=== PATIENT | male | born 1955 | race Caucasian/White ===

== ENCOUNTER 2019-07-20 09:35 | Day surgery (SDC) | payer OTHER, MEDICARE ==
[~2019-07-20] VITALS: Ht 177.8 cm; Wt 100.0 kg
[~2019-07-20 09:35] MED LIST: ATOR20 PO; Aspir 8181 MG PO; CHLO25B PO; LOSA25 PO; METO25ER PO; VENL150ER PO
[2019-07-20] MEDS ORDERED: CENTRUM SILVER1 EAC2 PO (10:18)
--- NOTE | 2019-07-20 13:30 | NUR ---
PT TO RECOVERY POST PROCEDURE. PT IS AWAKE, ORIENTED AND COOPERATIVE. PT DENIES CHEST PAIN/PRESSURE POST PROCEDURE. MONITOR SB 50'S, B/P 119/81, AFEBRILE, SPO2 94% RA. R RADIAL SITE NO SWELLING/HEMATOMA, TR BAND IN PLACE.
--- NOTE | 2019-07-20 16:20 | NUR ---
PT AMB TO BATHROOM, GAIT STEADY, SITE UNCHANGED.
--- NOTE | 2019-07-20 17:35 | NUR ---
PT AMB IN RECOVERY ROOM WITHOUT ISSUES, SITE UNCHANGED. PT DRESSED SELF INDEPENDENTLY, SITE UNCHANGED. TR BAND REMVOED, CLOTH DOT AND WRIST IMMOBILIZER IN PLACE; IV REMOVED-CANNULA INTACT.
--- NOTE | 2019-07-20 17:42 | NUR ---
PT RECEIVED DISCHARGE INSTRUCTIONS, MED LIST AND "AFTER CARE" INSTRUCTIONS; VERBALIZED GOOD UNDERSTANDING. PT WAS TAKEN TO CAR VIA W/C. PT LIVES IN HIS CAR ALONE AND WOULD BE DRIVING POST PROCEDURE. THIS WAS DISCUSSED PRIOR TO THE PT HAVING THE PROCEDURE AND THE PT CHOSE TO HAVE ONLY LOCAL AT THE SITE AND NO SEDATION. DR LYON DISCUSSED ALL THIS PRIOR TO TAKING THE PT BACK FOR HIS ANGIOGRAM.
== END 2019-07-20 22:34 | disposition home or self-care (01) ==
LOC: MHTC 09:35
PROC: 4A023N7 Measurement of Cardiac Sampling and Pressure, Left Heart, Percutaneous Approach (ICD-10-PCS; principal; 2019-07-20)
PROC: B201YZZ Plain Radiography of Multiple Coronary Arteries using Other Contrast (ICD-10-PCS; principal; 2019-07-20)
DX: I25.10 Atherosclerotic heart disease of native coronary artery without angina pectoris (principal); I35.0 Nonrheumatic aortic (valve) stenosis; E78.00 Pure hypercholesterolemia, unspecified; I10 Essential (primary) hypertension; E66.9 Obesity, unspecified; E78.5 Hyperlipidemia, unspecified; Z79.899 Other long term (current) drug therapy; Z79.82 Long term (current) use of aspirin; Z87.891 Personal history of nicotine dependence; Z68.31 Body mass index [BMI] 31.0-31.9, adult
CPT/HCPCS: 76937; 85347; 93005; 93010; 93458; C1769; C1894; J1644; J7030; Q9967

== ENCOUNTER 2020-12-09 08:25 | Emergency (ER) | payer OTHER, MEDICARE ==
[~2020-12-09] VITALS: Ht 177.8 cm; Wt 104.3 kg
[~2020-12-09 08:25] MED LIST changes: +CENTRUM SILVER1 EAC2 PO
[2020-12-09] MEDS ORDERED: HYDCHL12.5 PO (08:35)
[2020-12-09 09:04] LABS: BASOPHILS ABSOLUTE AUTO 0.01 K/mm3 (0.00-0.23); BASOPHILS PERCENT AUTO 0 % (0-2); EOSINOPHILS PERCENT AUTO 3 % (0-6); Hematocrit 38.8 % (37.0-53.0); Hemoglobin 13.1 g/dL (13.5-17.5); IMMATURE GRAN ABSOLUTE AUTO 0.03 K/mm3 (0.00-0.10); IMMATURE GRAN PERCENT AUTO 0 % (0-1); LYMPHOCYTES ABSOLUTE AUTO 1.32 K/mm3 (0.84-5.20); LYMPHOCYTES PERCENT AUTO 13 % (21-46); MONOCYTES ABSOLUTE AUTO 1.18 K/mm3 (0.16-1.47); MONOCYTES PERCENT AUTO 12 % (4-13); Mean Corpuscular HGB 30.6 pg (26.0-34.0); Mean Corpuscular HGB Conc 33.8 g/dL (31.5-36.5); Mean Corpuscular Volume 91 fL (80-100); NEUTROPHILS ABSOLUTE AUTO 7.39 K/mm3 (1.96-9.15); NEUTROPHILS PERCENT AUTO 72 % (41-73); Platelet Count 172 K/mm3 (150-400); RDW Coefficient Variation 12.9 % (11.7-14.2); RDW Standard Deviation 42.6 fL (35.1-46.3); Red Blood Cell Count 4.28 M/mm3 (4.30-5.90); White Blood Cell Count 10.23 K/mm3 (4.00-11.30)
[2020-12-09 09:26] LABS: Alanine Aminotransfer (ALT/SGP 18 U/L (12-78); Albumin, Blood 3.1 g/dL (3.4-5.0); Albumin/Globulin Ratio 0.8 (0.8-1.8); Alk Phos 132 U/L (50-136); Anion Gap 6 mmol/L (6-16); Aspartate Aminotrans (AST/SGOT 18 U/L (12-37); Bilirubin, Total 0.6 mg/dL (0.1-1.0); Blood Urea Nitrogen 14 mg/dL (8-24); Bun/Creatinine Ratio 12.7 (12.0-20.0); CO2, Blood 24 mmol/L (21-32); Calcium, Blood 8.8 mg/dL (8.5-10.1); Chloride, Blood 109 mmol/L (98-108); Glomerular Filtration Rate >60 (60-); Glucose, Blood 97 mg/dL (70-99); Potassium, Blood 3.7 mmol/L (3.5-5.5); Sodium, Blood 139 mmol/L (136-145); Total Protein, Blood 7.1 g/dL (6.4-8.2)
[2020-12-09] MEDS ORDERED: LEVFLO500 PO (11:07)
[2020-12-09] MEDS ORDERED: DICY20 PO (11:07)
== END 2020-12-09 11:25 | disposition home or self-care (01) ==
LOC: ER 08:25
PROVIDERS: Physician Assistant
DX: K52.9 Noninfective gastroenteritis and colitis, unspecified (principal); Z79.82 Long term (current) use of aspirin; Z79.899 Other long term (current) drug therapy
CPT/HCPCS: 36415; 74176; 80053; 83690; 84484; 85025; 93005; 93010; 96374; 99284-25; J2405; J7030

== ENCOUNTER 2021-06-10 18:48 | Emergency (ER) | payer OTHER ==
[~2021-06-10] VITALS: Ht 177.8 cm; Wt 95.2 kg
[~2021-06-10 18:48] MED LIST changes: +DICY20 PO; +HYDCHL12.5 PO; +LEVFLO500 PO
[2021-06-10] MEDS ORDERED: CYCLOBENZAPRINE5 MG PO (20:24)
[2021-06-11] MEDS ORDERED: IBUP600 PO (05:00)
[2021-06-11] MEDS ORDERED: CYCL10 PO (05:00)
== END 2021-06-10 20:35 | disposition home or self-care (01) ==
LOC: ER 18:48
DX: S16.1XXA Strain of muscle, fascia and tendon at neck level, initial encounter (principal); I10 Essential (primary) hypertension; E78.00 Pure hypercholesterolemia, unspecified; Z87.891 Personal history of nicotine dependence; Z79.899 Other long term (current) drug therapy; V89.2XXA Person injured in unspecified motor-vehicle accident, traffic, initial encounter
CPT/HCPCS: 70450; 72125; 99284-25

== ENCOUNTER 2021-06-11 03:00 | Emergency (ER) | payer OTHER ==
[~2021-06-11] VITALS: Ht 177.8 cm; Wt 99.8 kg
[~2021-06-11 03:00] MED LIST changes: +CYCLOBENZAPRINE5 MG PO
[2021-06-11] MEDS ORDERED: CYCL10 PO (05:00)
[2021-06-11] MEDS ORDERED: IBUP600 PO (05:00)
== END 2021-06-11 05:39 | disposition home or self-care (01) ==
LOC: ER 03:00
DX: M79.10 Myalgia, unspecified site (principal); I10 Essential (primary) hypertension; E78.00 Pure hypercholesterolemia, unspecified; Z87.891 Personal history of nicotine dependence; Z79.899 Other long term (current) drug therapy
CPT/HCPCS: 96372; 99282; A9270; J1885

== ENCOUNTER → 2023-01-10 | Outpatient (CLI) | payer OTHER ==
[~2023-01-10] MED LIST changes: +CYCL10 PO; +IBUP600 PO
[2023-01-12 13:09] LABS: Adenovirus F 40/41 Not Detected (NOT DETECT); Astrovirus Not Detected (NOT DETECT); Campylobacter Sp Not Detected (NOT DETECT); Cryptosporidium Not Detected (NOT DETECT); Cyclospora Cayetanensis Not Detected (NOT DETECT); E. Coli O157 Not Detected (NOT DETECT); Entamoeba Histolytica Not Detected (NOT DETECT); Enteroaggregative E. coli-EAEC Not Detected (NOT DETECT); Enteropathogenic E. coli-EPEC Not Detected (NOT DETECT); Enterotoxigenic E. coli-ETEC Not Detected (NOT DETECT); Giardia Lamblia Not Detected (NOT DETECT); Norovirus GI/GII Not Detected (NOT DETECT); Plesiomonas Shigelloides Not Detected (NOT DETECT); Rotavirus A Not Detected (NOT DETECT); Salmonella Sp Not Detected (NOT DETECT); Sapovirus Not Detected (NOT DETECT); Shiga Toxin-prod E. coli-STEC Not Detected (NOT DETECT); Shigella/Enteroin E. coli-EIEC Not Detected (NOT DETECT); Vibrio Cholerae Not Detected (NOT DETECT); Vibrio Sp Not Detected (NOT DETECT); Yersinia Enterocolitica Not Detected (NOT DETECT)
== END | disposition home or self-care (01) ==
LOC: LAB SHORT 09:06
PROVIDERS: Physician Assistant Medical
DX: R19.7 Diarrhea, unspecified (principal)
CPT/HCPCS: 87507

== ENCOUNTER 2024-01-18 01:39 | Emergency (ER) | payer OTHER ==
[~2024-01-18] VITALS: Ht 175.3 cm; Wt 97.1 kg
[2024-01-18] MEDS ORDERED: Acetaminophen 500 MG Tab PO ONE (03:55)
[2024-01-18] MEDS ORDERED: AMLO5 PO (04:05)
[2024-01-18] MEDS ORDERED: FURO40 PO (04:05)
[2024-01-18] MEDS ORDERED: ESCI20 PO (04:05)
[2024-01-18 04:15] LABS: BASOPHILS ABSOLUTE AUTO 0.04 K/mm3 (0.00-0.23); BASOPHILS PERCENT AUTO 0 % (0-2); EOSINOPHILS ABSOLUTE AUTO 0.37 K/mm3 (0.00-0.68); EOSINOPHILS PERCENT AUTO 3 % (0-6); Hematocrit 36.4 % (37.0-53.0); Hemoglobin 12.5 g/dL (13.5-17.5); IMMATURE GRAN ABSOLUTE AUTO 0.04 K/mm3 (0.00-0.10); IMMATURE GRAN PERCENT AUTO 0 % (0-1); LYMPHOCYTES ABSOLUTE AUTO 0.71 K/mm3 (0.84-5.20); LYMPHOCYTES PERCENT AUTO 6 % (21-46); MONOCYTES ABSOLUTE AUTO 0.71 K/mm3 (0.16-1.47); MONOCYTES PERCENT AUTO 6 % (4-13); Mean Corpuscular HGB 29.4 pg (26.0-34.0); Mean Corpuscular HGB Conc 34.3 g/dL (31.5-36.5); Mean Corpuscular Volume 86 fL (80-100); NEUTROPHILS ABSOLUTE AUTO 9.91 K/mm3 (1.96-9.15); NEUTROPHILS PERCENT AUTO 84 % (41-73); RDW Coefficient Variation 13.2 % (11.7-14.2); RDW Standard Deviation 40.6 fL (35.1-46.3); Red Blood Cell Count 4.25 M/mm3 (4.30-5.90); White Blood Cell Count 11.78 K/mm3 (4.00-11.30)
[2024-01-18 04:16] LABS: Mean Platelet Volume 10.7 fL (9.1-12.4); Platelet Count 171 K/mm3 (150-400)
[2024-01-18 04:17] LABS: Influenza A, PCR NEGATIVE (NEGATIVE); Influenza B, PCR NEGATIVE (NEGATIVE); Resp Syncytial Virus, PCR NEGATIVE (NEGATIVE); SARS-Cov-2 (COVID-19) PCR, MMC NEGATIVE (NEGATIVE)
[2024-01-18 04:30] LABS: Alanine Aminotransfer (ALT/SGP 21 U/L (12-78); Albumin, Blood 3.8 g/dL (3.4-5.0); Albumin/Globulin Ratio 1.1 (0.8-1.8); Alk Phos 86 U/L (50-136); Anion Gap 11 mmol/L (3-11); Aspartate Aminotrans (AST/SGOT 19 U/L (12-37); Bilirubin, Total 0.6 mg/dL (0.1-1.0); Blood Urea Nitrogen 34 mg/dL (8-24); Bun/Creatinine Ratio 21.5 (12.0-20.0); CO2, Blood 23 mmol/L (21-32); Calcium, Blood 9.3 mg/dL (8.5-10.1); Chloride, Blood 108 mmol/L (98-108); Creatinine, Blood 1.58 mg/dL (0.60-1.20); Globulin, Blood 3.5 g/dL (2.2-4.0); Glomerular Filtration Rate 47 (60-); Glucose, Blood 107 mg/dL (70-99); Potassium, Blood 4.3 mmol/L (3.5-5.5); Sodium, Blood 138 mmol/L (136-145); Total Protein, Blood 7.3 g/dL (6.4-8.2)
[2024-01-18] MEDS ORDERED: Lactated Ringer's 1,000 ML IV ONE (04:50)
[2024-01-18 04:56] LABS: Source, Urine Clean Catch
[2024-01-18 04:59] LABS: Bilirubin, Urine Neg (Neg); Blood, Urine Neg (Neg); Glucose Qualitative, Urine Neg (Neg); Ketones, Urine Neg (Neg); Leukocyte Esterase, Urine Neg (Neg); Nitrite, Urine Neg (Neg); Protein, Urine Neg (Neg); Specific Gravity, Urine 1.005 (1.003-1.022); Urobilinogen, Urine NORM (Normal)
[2024-01-18 05:03] LABS: Appearance, Urine Clear (Clear); Color, Urine Yellow (P-Yellow)
[2024-01-18 05:07] LABS: Ethanol (Alcohol), Blood, Med <3 mg/dL
[2024-01-18 05:33] LABS: U Amphetamine Screen Not Detected; U Barbituate Screen Not Detected; U Benzodiazapine Screen Not Detected; U Buprenorphine Screen Not Detected; U Cannabinoids Screen Not Detected; U Cocaine Screen Not Detected; U Methadone Screen Not Detected; U Methamphetamine Screen Not Detected; U Opiates Screen Not Detected; U Oxycodone Screen Not Detected; U Phencyclidine Screen Not Detected
[2024-01-18] MEDS ORDERED: Cefdinir 300 MG Cap PO ONE (05:35)
[2024-01-18] MEDS ORDERED: CEFD300 PO (05:48)
[2024-01-18 06:00] VITALS: BP 107/65
[2024-01-22] MEDS ORDERED: LISI20 PO (16:08)
[2024-01-22] MEDS ORDERED: VITAMIN B12500 MCG PO (16:09)
[2024-01-22] MEDS ORDERED: Vitamin D1000 UNI1 PO (16:09)
[2024-01-22] MEDS ORDERED: NITR.4SL SL (16:52)
[2024-01-22] MEDS ORDERED: NITRO-DUR1 EAC1 TOP (16:53)
[2024-01-25] MEDS ORDERED: VISBIOME 112.51 EACH PO (18:06)
[2024-01-25] MEDS ORDERED: CEFTRIAXONE2 G1 IV (18:07)
== END 2024-01-18 06:15 | disposition home or self-care (01) ==
LOC: ER 01:39
PROVIDERS: Emergency Medicine
DX: R50.9 Fever, unspecified (principal); I10 Essential (primary) hypertension; Z79.82 Long term (current) use of aspirin; Z79.899 Other long term (current) drug therapy; Z95.1 Presence of aortocoronary bypass graft; Z87.891 Personal history of nicotine dependence; Z11.52 Encounter for screening for COVID-19
CPT/HCPCS: 0241U; 71046; 80053; 81003; 83605; 83735; 84145; 85025; 87040; 87184; 99283-25; A9270; J7120

== ENCOUNTER 2024-01-22 10:44 | Inpatient (IN) | payer OTHER ==
[~2024-01-22] VITALS: Ht 175.3 cm; Wt 98.7 kg
[~2024-01-22 10:44] MED LIST changes: +AMLO5 PO; +CEFD300 PO; +ESCI20 PO; +FURO40 PO
[2024-01-22 11:23] LABS: BASOPHILS ABSOLUTE AUTO 0.06 K/mm3 (0.00-0.23); BASOPHILS PERCENT AUTO 1 % (0-2); EOSINOPHILS ABSOLUTE AUTO 0.64 K/mm3 (0.00-0.68); EOSINOPHILS PERCENT AUTO 8 % (0-6); Hematocrit 33.8 % (37.0-53.0); Hemoglobin 11.3 g/dL (13.5-17.5); IMMATURE GRAN ABSOLUTE AUTO 0.04 K/mm3 (0.00-0.10); IMMATURE GRAN PERCENT AUTO 1 % (0-1); LYMPHOCYTES ABSOLUTE AUTO 1.59 K/mm3 (0.84-5.20); LYMPHOCYTES PERCENT AUTO 19 % (21-46); MONOCYTES ABSOLUTE AUTO 0.88 K/mm3 (0.16-1.47); MONOCYTES PERCENT AUTO 11 % (4-13); Mean Corpuscular HGB 29.2 pg (26.0-34.0); Mean Corpuscular HGB Conc 33.4 g/dL (31.5-36.5); Mean Corpuscular Volume 87 fL (80-100); Mean Platelet Volume 10.7 fL (9.1-12.4); NEUTROPHILS PERCENT AUTO 61 % (41-73); Platelet Count 180 K/mm3 (150-400); RDW Coefficient Variation 13.6 % (11.7-14.2); RDW Standard Deviation 43.5 fL (35.1-46.3); Red Blood Cell Count 3.87 M/mm3 (4.30-5.90); White Blood Cell Count 8.31 K/mm3 (4.00-11.30)
[2024-01-22] MEDS ORDERED: CefTRIAXone Sodium 1,000 MG in NS 100 ML IV ONE (11:40)
[2024-01-22 11:52] LABS: Albumin, Blood 3.3 g/dL (3.4-5.0); Albumin/Globulin Ratio 0.8 (0.8-1.8); Bilirubin, Total 0.5 mg/dL (0.1-1.0); Bun/Creatinine Ratio 14.7 (12.0-20.0); Calcium, Blood 8.8 mg/dL (8.5-10.1); Creatinine, Blood 1.36 mg/dL (0.60-1.20); Potassium, Blood 4.3 mmol/L (3.5-5.5); Total Protein, Blood 7.3 g/dL (6.4-8.2)
[2024-01-22] MEDS ORDERED: Polyethylene Glycol 3350 17 gm PO PRN (14:50)
[2024-01-22] MEDS ORDERED: Acetaminophen 500 MG Tab PO PRN (14:50)
[2024-01-22 16:04] VITALS: BP 135/73
[2024-01-22] MEDS ORDERED: LISI20 PO ×2 (16:08)
[2024-01-22] MEDS ORDERED: VITAMIN B12500 MCG PO ×2 (16:09)
[2024-01-22] MEDS ORDERED: Vitamin D1000 UNI1 PO ×2 (16:09)
[2024-01-22] MEDS ORDERED: NITR.4SL SL ×2 (16:52)
[2024-01-22] MEDS ORDERED: NITRO-DUR1 EAC1 TOP ×2 (16:53)
--- NOTE | 2024-01-22 17:48 | NUR ---
ADMISSION/RN NOTE MR LUCAS WAS ADMITTED TO MEDICAL UNIT FROM THE ER AT 1600HRS. HE HAS RLE CELULITIS, REDNESS AND SWELLING AROUND RIGHT ANKLE. HE DENIES ANY PAIN WHILE AT REST, SAID THAT HE FEELS PRESSURE WHEN HE AMBULATES ON IT. HE C/O CHRONIC NUMBNESS AND TINGLING TO BLE. MR LUCAS IS ORIENTATED, TALKATIVE. 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 HE IS WEARING 0.1MG/HR NITRO PATCH ON HIS LEFT CHEST. MED REC UPDATED AND DR OCASIO NOTIFIED. MR LUCAS IS CURRENTLY LIVING IN HIS VEHICLE AND HAS NO OTHER HOME. HE SAID THERE HAVE BEEN OCCASIONS OVER THE PAST YEAR THAT HE WAS CONCERNED THAT HE WOULDN'T HAVE ENOUGH FOOD, BUT THAT HE HAS ALWAYS MANAGED. HE HAS BEEN ABLE TO GET TO MEDICAL APPOINTMENTS, GET HIS MEDICATIONS AND GENERALLY APPEARS WELL KEMPT. ADVISED ON FALL PRECAUTIONS AND PREVENTION AND PT VERBALISED UNDERTANDING. RESTING IN BED, CALL LIGHT IN REACH, FEET ELEVATED.
[2024-01-22 19:21] VITALS: BP 104/62
[2024-01-22] MEDS ORDERED: Docusate Sodium/Senna 1 Tab PO SCH (21:00)
[2024-01-22] MEDS ORDERED: Lactobacil 2-S.Thermo-Bifido 1 1 Cap PO SCH (21:00)
[2024-01-22] MEDS ORDERED: Atorvastatin 40 MG Tab PO SCH (21:00)
[2024-01-23 03:01] VITALS: BP 104/76
--- NOTE | 2024-01-23 04:17 | NUR ---
OIL WELL LOGGER SUMMARY VSS. ALERT TO QUESTIONS ASKED. SOME APPARENT FORGETFULNESS. UP AD JESSE. TOLERATED MES WELL WITH WATER. RIGHT LOWER EXT REMAINS REDDENED AND SWOLLEN BUT ABLE TO WALK ON IT. NO C/O PAIN. HAS BEEN RESTING QUIETLY WITH FEW INTERRUPTIONS, ABLE TO REPOSITION SELF IN BED WITHOUT ASSIST. CALL LIGHT IN REACH, RAILS UP X 2 AND BED IN LOW POSITION FOR SAFETY. WILL CONTINUE TO MONITOR
[2024-01-23 05:18] LABS: Hemoglobin 10.8 g/dL (13.5-17.5); Mean Corpuscular HGB 28.9 pg (26.0-34.0); Mean Corpuscular HGB Conc 32.7 g/dL (31.5-36.5); Mean Corpuscular Volume 88 fL (80-100); Mean Platelet Volume 10.3 fL (9.1-12.4); Platelet Count 167 K/mm3 (150-400); RDW Coefficient Variation 13.5 % (11.7-14.2); RDW Standard Deviation 43.8 fL (35.1-46.3); Red Blood Cell Count 3.74 M/mm3 (4.30-5.90); White Blood Cell Count 6.94 K/mm3 (4.00-11.30)
[2024-01-23] MEDS ORDERED: Nitroglycerin Patch 0.1MG / HR TOP SCH (06:00)
[2024-01-23 06:25] LABS: Albumin, Blood 2.9 g/dL (3.4-5.0); Anion Gap 10 mmol/L (3-11); Blood Urea Nitrogen 22 mg/dL (8-24); Bun/Creatinine Ratio 17.3 (12.0-20.0); CO2, Blood 24 mmol/L (21-32); Calcium, Blood 8.7 mg/dL (8.5-10.1); Chloride, Blood 111 mmol/L (98-108); Creatinine, Blood 1.27 mg/dL (0.60-1.20); Glomerular Filtration Rate 61 (60-); Glucose, Blood 97 mg/dL (70-99); Magnesium, Blood 2.4 mg/dL (1.6-2.4); Phosphorus, Blood 3.6 mg/dL (2.5-4.9); Potassium, Blood 4.1 mmol/L (3.5-5.5); Sodium, Blood 141 mmol/L (136-145)
[2024-01-23 07:31] VITALS: BP 119/73
[2024-01-23] MEDS ORDERED: NS 250 ML IV PRN (07:35)
[2024-01-23] MEDS ORDERED: CeFAZolin Sodium 2,000 MG in NS 100 ML IV SCH (08:00)
[2024-01-23] MEDS ORDERED: Lisinopril 20 MG Tab PO SCH (09:00)
[2024-01-23] MEDS ORDERED: Citalopram Hydrobromide 20 MG Tab PO SCH (09:00)
[2024-01-23] MEDS ORDERED: AmLODIPine Besylate 5 MG Tab PO SCH (09:00)
[2024-01-23] MEDS ORDERED: Furosemide 40 MG Tab PO SCH (09:00)
[2024-01-23] MEDS ORDERED: Multivitamins 1 Tab PO SCH (09:00)
[2024-01-23] MEDS ORDERED: Cholecalciferol 1000 Unit Tablet (=25MCG) PO SCH (09:00)
[2024-01-23] MEDS ORDERED: Enoxaparin 40 MG/0.4 ML SYR SC SCH (09:00)
[2024-01-23] MEDS ORDERED: Aspirin 81 MG TabEC PO SCH (09:00)
[2024-01-23 14:53] VITALS: BP 123/68
--- NOTE | 2024-01-23 17:04 | NUR ---
SHIFT ASSESSMENT MR LUCAS HAS NO NOTABLE CHANGE TO RIGHT ANKLE REDNESS AND SWELLING TODAY. RIGHT ANKLE DISCOMFORT HELPED WITH TYLENOL. UP INDEPENDENTLY TO SHOWER/BATHROOM WITH STEADY GAIT. RECEIVING IV ABX SCHEDULED. GOOD APPETITE. BED LOW, CALL LIGHT IN REACH.
[2024-01-23 19:58] VITALS: BP 115/74
--- NOTE | 2024-01-24 03:52 | NUR ---
DRAFTER MECHANICAL SUMMARY VSS. UP AD JESSE, CONTINENT OF BOWEL AND BLADDER. RIGHT LOWER LEG/ANKLE/FOOT REMAINS REDDENED AND SWOLLEN. RECEIVING ANTIBIOTICS AND TYLENOL FOR PAIN - SEE MAR FOR DETAILS. ABLE TO REPOSITION SELF IN BED WITHOUT ASSIST. HAS BEEN RESTING QUIETLY WITH FEW INTERRUPTIONS. CALL LIGHT IN REACH, RAILS UP X 2 AND BED IN LOW POSITION FOR SAFETY. WILL CONTINUE TO MONITOR
[2024-01-24 04:32] VITALS: BP 128/77
[2024-01-24 07:21] VITALS: BP 119/72
[2024-01-24 14:43] VITALS: BP 111/73
--- NOTE | 2024-01-24 15:56 | NUR ---
SHIFT SUMMARY MR LUCAS IN OX4. AMBULATORY INDEPENDENTLY IN THE ROOM. REDNESS AND SWELLING TO RIGHT ANKLE LOOKS IMPROVED COMPARED TO YESTERDAY. ENCOURAGED TO KEEP RIGHT ANKLE ELEVATED. HE C/O SOME DISCOMFORT TO RIGHT AND LEFT LOWER BACK, LEFT KNEE AND RIGHT RY. HE USED ICE AND TYLENOL WITH LITTLE RELIEF. PAIN /, ON IV ABX. BED LOW. CALL LIGHT IN REACH.
[2024-01-24 19:43] VITALS: BP 95/64
[2024-01-24 19:44] VITALS: BP 109/72
--- NOTE | 2024-01-25 00:43 | NUR ---
PATIENT IS SLEEPING AT THIS TIME AND DOES NOT APPEAR TO BE IN ANY DISTRESS. CARE IS ONGOING.
[2024-01-25 02:37] VITALS: BP 114/68
--- NOTE | 2024-01-25 04:05 | NUR ---
PATIENT APPEARS TO BE SLEEPING AT THIS TIME. DOES NOT APPEAR TO BE IN ANY DISTRESS. BED IS IN THE LOWEST POSITION, AND CALL LIGHT IS WITHIN REACH.
--- NOTE | 2024-01-25 04:52 | NUR ---
SHIFT SUMMARY PATIENT IS ALERT AND ORIENTED X4. FULL CODE. PLEASANT AND COOPERATIVE WITH CARE. PATIENT IS INDEPENDENT IN THE ROOM. RLE REDNESS AND SWELLING APPEARS TO BE DECREASING. PATIENT REPORTS 2/10 DISCOMFORT TWICE DURING SHIFT. TYLENOL IS GIVEN BOTH TIMES. PATIENT REPORTS THAT THIS IS EFFECTIVE. PATIENT SLEEPS THROUGH MOST OF THE NIGHT WITH NO ISSUES. BED IS IN LOWEST POSITION AND CALL LIGHT IS WITHIN REACH. THIS RN WILL RELAY ALL INFORMATION TO ONCOMING AM NURSE. NO ACUTE CHANGES DURING THIS SHIFT.
[2024-01-25 06:14] LABS: Hemoglobin 12.4 g/dL (13.5-17.5); Mean Corpuscular HGB 29.1 pg (26.0-34.0); Mean Corpuscular HGB Conc 33.5 g/dL (31.5-36.5); Mean Corpuscular Volume 87 fL (80-100); Mean Platelet Volume 10.1 fL (9.1-12.4); Platelet Count 222 K/mm3 (150-400); RDW Coefficient Variation 13.3 % (11.7-14.2); RDW Standard Deviation 41.5 fL (35.1-46.3); Red Blood Cell Count 4.26 M/mm3 (4.30-5.90); White Blood Cell Count 7.95 K/mm3 (4.00-11.30)
[2024-01-25 06:31] LABS: Albumin, Blood 3.3 g/dL (3.4-5.0); Anion Gap 10 mmol/L (3-11); Blood Urea Nitrogen 22 mg/dL (8-24); Bun/Creatinine Ratio 16.4 (12.0-20.0); CO2, Blood 25 mmol/L (21-32); Chloride, Blood 109 mmol/L (98-108); Creatinine, Blood 1.34 mg/dL (0.60-1.20); Glomerular Filtration Rate 57 (60-); Glucose, Blood 96 mg/dL (70-99); Phosphorus, Blood 3.9 mg/dL (2.5-4.9); Potassium, Blood 4.1 mmol/L (3.5-5.5); Sodium, Blood 140 mmol/L (136-145)
[2024-01-25 07:53] VITALS: BP 116/85
[2024-01-25] MEDS ORDERED: CefTRIAXone Sodium 2,000 MG in NS 100 ML IV SCH (10:30)
[2024-01-25 16:20] VITALS: BP 110/84
[2024-01-25] MEDS ORDERED: VISBIOME 112.51 EACH PO ×2 (18:06)
[2024-01-25] MEDS ORDERED: CEFTRIAXONE2 G1 IV ×2 (18:07)
--- NOTE | 2024-01-25 18:11 | NUR ---
PT PLEASANT TODAY. VERY TALKATIVE. WAS TO DISCHARGE, BUT ATC NOT ABLE TO TAKE REPORT TO FIT HIM IN. EXPECT WILL D/C TOMORROW. NO OTHER CONCERNS NOTED. POWERGLIDE PLACED FOR DISCARGE. BED IN LOW POSITION, CALLLITE IN REACH, CALLS APPROP
[2024-01-25 19:29] VITALS: BP 108/77
[2024-01-26 02:46] VITALS: BP 106/73
--- NOTE | 2024-01-26 04:22 | NUR ---
REPORT RECEIVED FROM PREVIOUS SHIFT. PT CARE ASSUMED. ASSESSMENT COMPLETED. AFFECT FLAT. PT REFUSES EYE CONTACT. PT IMPATIENT AT TIMES. PT C/O PAIN X1 HS. MEDICATED PER ORDERS. PT RESTING QUIETLY IN BED WITH EYES CLOSED. NO DISTRESS NOTED.
[2024-01-26 07:22] VITALS: BP 108/71
--- NOTE | 2024-01-26 13:34 | NUR ---
PATIENT PACING IN HALLWAY, ASKING WHO HE NEEDS TO CALL IN ORDER TO GET DISCHARGES AND SUCH IN. INFORMED HIM WE ARE WAITING FOR INSURANCE AUTHORIZATION AND HE REPORTS THIS WAS DONE THE OTHER DAY WHEN HE WAS ADMITTED. TOLD HIM THIS IS A DIFFERENT PRIOR AUTHORIZATION. PICKED UP HIS CELL PHONE AND ASKED WHO HE NEEDED TO CALL. IS NOW ON THE PHONE WITH [facility] ATTEMPTING TO DIRECT HIS OWN CARE AND GET PRIOR AUTHORIZATION FOR [place] PUSHED THROUGH.
[2024-01-26 15:25] VITALS: BP 98/78
--- NOTE | 2024-01-26 16:09 | NUR ---
PATIENT TO HALLWAY. AGITATED. ASKS TO SPEAK TO [employer] RECONDITIONING INSPECTOR, TONYA, RN "ABOUT OPTIONS". WANTS TO KNOW IF ORAL ABT IS AN OPTION. I LET HIM KNOW I WOULD CALL THE PROVIDER AND ASK. HE STATES, "MY OTHER OPTION IS I COULD JUST LEAVE. THEN I'LL COME TO THE EMERGENCY ROOM. EVERY DAY. AND ASK FOR THE ANTIBIOTICS. EVERY DAY. AND I'LL GET THEM." ASKED HIM TO WAIT; CALLED DR. VILLAFANA WHO STATED TO CONTACT TONYA SHE BELIEVES THE PA HAS BEEN PROCESSED. TONYA TO BEDSIDE TO DISCUSS WITH PT.
--- NOTE | 2024-01-26 16:18 | NUR ---
PER TONYA, PATIENT WILL BE ABLE TO DISCHARGE TOMORROW MORNING AFTER MORNING DOSE OF ABx AND PA SHOULD BE PROCESSED.
--- NOTE | 2024-01-26 18:36 | NUR ---
END OF SHIFT SUMMARY: A&Ox4. PLEASANT AND COOPERATIVE WITH CARE. CALLS APPROPRIATELY AND IS ABLE TO ADVOCATE NEEDS EFFECTIVELY. ANXIOUS TODAY, HE WAS ANTICIPATING DISCHARGE, BUT THERE [facility] BEEN [facility]ARD[facility] AND THE [facility]. TENTATIVE PLAN TO DISCHARGE TOMORROW AFTER RECEIVING IV ABx. AMBULATES INDEPENDENTLY. RLE STILL ERYTHEMATOUS AND EDEMATOUS, BUT SIGNIFICANTLY LESS THAN WHEN HE CAME IN, ACCORDING TO PATIENT. LBM TODAY. MEDS WHOLE WITH FLUIDS. MEDICATED x1 PRN APAP C/O LEG CRAMPS. POWERGLIDE ALEXIS FLUSHES AND DRAWS. BED IN LOWEST POSITION. CALL LIGHT WITHIN REACH. ALL NEEDS MET. REPORT TO ONCOMING RN.
[2024-01-26 19:36] VITALS: BP 119/85
--- NOTE | 2024-01-26 22:47 | NUR ---
HGB 7.7. NOTIFIED. ORDERS RECEIVED TO HOLD PRBC AT THIS TIME.
[2024-01-27 03:30] VITALS: BP 95/69
--- NOTE | 2024-01-27 06:20 | NUR ---
pT RESTED QUIETLY THROUGH THE NIGHT.
[2024-01-27 07:48] VITALS: BP 106/83
--- NOTE | 2024-01-27 12:50 | NUR ---
SHIFT/DISCHARGE SUMMARY: PATIENT A/OX4, PLEASANT AND COOPERATIVE c CARE. PATIENT REPORTS PAIN 2/10 R ANKLE, MEDICATED c PRN EMAR PAIN MEDS c GOOD EFFECT. PATIENT RECEIVED IV ABX/SCHEDULED MEDS PER EMAR. PATIENT HAD SHOWER THIS AM. PATIENT HAS NO COMPLAINTS OR DENIES NEW CONCERNED THIS SHIFT. PATIENT HAS GREAT APPETITE, AMBULATES TO BATHROOM INDPENDENTLY. PATIENT HAS POWERGLIDE TO [facility]. PATIENT DISCHARGE HOME. DISCHARGE INSTRUCTIONS PACKET GIVEN TO PATIENT. PATIENT DISCHARGING c POWERGLIDE TO [facility] FOR CONTINUES DAILY ABX TX FOR 2 WEEKS AT [facility]. EDUCATE PATIENT REGARDING ADMITTING DX'S OF BACTERIAL INFECTION D/T STREPTOCUCOS, S/S, TX, NEW PRESCRIBED RX, SELF CARE, F/U c PCP AND DAILY ABX TX. PATIENT VERBALIZED UNDERSTANDING AND NO FURTHER QUESTIONS. ALL PATIENT PERSONAL BELONGINGS WERE SENT HOME c THE PATIENT. PATIENT LEFT THE ROOM AT 1235 AND TRANSPORTED VIA WHEELCHAIR.
== END 2024-01-27 12:36 | disposition home or self-care (01) | DRG 603 ==
LOC: ER 10:44 → MEDS 15:31 → ENPENDDIS 01-27 10:49 → MEDS 01-27 12:36
PROVIDERS: Emergency Medicine; Internal Medicine; ADMIT Internal Medicine
DX: L03.115 Cellulitis of right lower limb (principal); N17.9 Acute kidney failure, unspecified; Z59.00 Homelessness unspecified; I10 Essential (primary) hypertension; F32.A Depression, unspecified; E78.5 Hyperlipidemia, unspecified; T36.1X5A Adverse effect of cephalosporins and other beta-lactam antibiotics, initial encounter; D64.9 Anemia, unspecified; Z87.820 Personal history of traumatic brain injury; B95.4 Other streptococcus as the cause of diseases classified elsewhere; E78.00 Pure hypercholesterolemia, unspecified; Z87.19 Personal history of other diseases of the digestive system; Z90.89 Acquired absence of other organs; Z98.890 Other specified postprocedural states; Z87.891 Personal history of nicotine dependence; F79 Unspecified intellectual disabilities; Z79.82 Long term (current) use of aspirin; Z79.899 Other long term (current) drug therapy; Z95.1 Presence of aortocoronary bypass graft
CPT/HCPCS: 36415; 73701; 80053; 80069; 83605; 83735; 85025; 85027; 87040; 93306; 96365-59; 99285-25; A9270; C1751; J0690; J0696; J1650; J7050; Q9967

== ENCOUNTER 2024-01-28 02:34 | Day surgery (SDC) | payer OTHER ==
[~2024-01-28 02:34] MED LIST changes: +CEFTRIAXONE2 G1 IV; +LISI20 PO; +NITR.4SL SL; +NITRO-DUR1 EAC1 TOP; +VISBIOME 112.51 EACH PO; +VITAMIN B12500 MCG PO; +Vitamin D1000 UNI1 PO
[2024-01-28] MEDS ORDERED: CefTRIAXone Sodium 2,000 MG in NS 100 ML IV SCH (06:00)
[2024-01-28 14:43] VITALS: BP 92/61
== END 2024-01-28 15:04 | disposition home or self-care (01) ==
LOC: ATC 02:34
DX: L03.115 Cellulitis of right lower limb (principal); R78.81 Bacteremia; B95.2 Enterococcus as the cause of diseases classified elsewhere; E78.00 Pure hypercholesterolemia, unspecified; I10 Essential (primary) hypertension; Z87.891 Personal history of nicotine dependence; Z88.5 Allergy status to narcotic agent; Z79.82 Long term (current) use of aspirin; Z79.899 Other long term (current) drug therapy; Z59.00 Homelessness unspecified; F79 Unspecified intellectual disabilities
CPT/HCPCS: 96365; J0696